=== PATIENT | female | born 1945 | race Caucasian/White ===

== ENCOUNTER 2017-08-15 01:55 | Emergency (ER) | payer MEDICARE, BC ==
--- NOTE | 2017-08-15 02:11 | EDM.PDOC ---
ED HPI GENERAL MEDICAL PROBLEM - General Chief Complaint: Chest Pain Stated Complaint: PAIN IN LEFT SHOULDER AREA INTO CHEST Time Seen by Provider: 08/15/17 02:11 Source of Information: Reports: Patient History Limitations: Reports: No Limitations - History of Present Illness INITIAL COMMENTS - FREE TEXT/NARRATIVE: pt has been having chest pain on and off for about 2 weeks. She woke up tonight and she had chest pain that lasted for 15 minutes that was rated at a 7 or 8. She is more comfortable at this time. She had a mamogram earlier in the week and the left breast that she had surgery on gets very tender so she thought some of the pain could be that. Onset: Gradual, Other (pt had the most severe pain today. ) Duration: Hour(s): Location: Reports: Chest Associated Symptoms: Reports: Chest Pain, Shortness of Breath, Other (pain radiates to her back. ) Left Chest Pain Score (Numeric/FACES): 3 - Related Data Allergies Allergy/AdvReac Type Severity Reaction Status Date / Time rofecoxib [From Vioxx] Allergy Blurred Verified 02/12/15 08:24 Vision Sulfa (Sulfonamide Allergy Rash Verified 02/12/15 08:24 Antibiotics) aspirin AdvReac Nose Bleeds Verified 02/12/15 08:26 Home Meds: Home Meds Cholecalciferol (Vitamin D3) [Vitamin D3] 4,000 units PO DAILY 11/15/14 [History ] MV,Ca,Min/Iron Fum/FA/Vit K [Essential Woman Tablet] 1 each PO DAILY 11/15/14 [ History] Metoprolol Succinate [Toprol XL] 50 mg PO DAILY 11/15/14 [History] Vitamin B Complex [Vitamin B-100 Complex] 1 tab PO DAILY 11/15/14 [History] Acetaminophen [Tylenol Extra Strength] 500 - 1,000 mg PO Q4H PRN 12/06/14 [ History] Dexamethasone 2 mg PO BID PRN 12/06/14 [History] Loratadine [Claritin] 10 mg PO DAILY PRN 12/06/14 [History] Letrozole [Letrozole] 2.5 mg PO DAILY 08/15/17 [History] glipiZIDE [Glipizide Xl] 5 mg PO DAILY 08/15/17 [History] metFORMIN [Glucophage] 500 mg PO BID 08/15/17 [History] ED ROS GENERAL - Review of Systems Review Of Systems: See Below Constitutional: Reports: No Symptoms HEENT: Reports: No Symptoms Respiratory: Reports: No Symptoms Cardiovascular: Reports: Chest Pain, Other (Pt woke up tonight with chest pain at a 8 which lasted for several minutes. ) Endocrine: Reports: No Symptoms GI/Abdominal: Reports: No Symptoms : Reports: No Symptoms Musculoskeletal: Reports: No Symptoms Neurological: Reports: No Symptoms ED EXAM, GENERAL - Physical Exam Exam: See Below Free Text/Narrative:: pt is not havoing severe chest pain at thie time but earlier she would have rated it at an 8. She did not get diaphoretic and she did not vomit. Exam Limited By: No Limitations General Appearance: Alert, Mild Distress Ears: Normal TMs Nose: Normal Inspection Throat/Mouth: Normal Inspection Head: Atraumatic Neck: Normal Inspection Respiratory/Chest: No Respiratory Distress Cardiovascular: Regular Rate, Rhythm, Other (pt is not having acute chest pain at this time. ) GI/Abdominal: Soft, Non-Tender (Female) Exam: Deferred Rectal (Female) Exam: Deferred Back Exam: Normal Inspection Extremities: Normal Inspection Neurological: Alert, Oriented, Normal Cognition Psychiatric: Normal Affect Course - Vital Signs Last Recorded V/S: Last Vital Signs Temp 36.7 C 08/15/17 02:15 Pulse 89 08/15/17 02:52 Resp 18 08/15/17 02:52 BP 163/84 H 08/15/17 02:52 Pulse Ox 96 08/15/17 02:52 - Orders/Labs/Meds Orders: Active Orders 24 hr Category Date Time Status EKG Documentation Completion [RC] ASDIRECTED Care 08/15/17 02:06 Active Chest 1V Frontal [CR] Stat Exams 08/15/17 02:14 Taken UA W/MICROSCOPIC [URIN] Urgent Lab 08/15/17 02:10 Uncollected Nitroglycerin/D5W [Nitroglycerin 25 MG/D5W 250 ML] Med 08/15/17 02:30 Active 25 mg in 250 ml IV TITRATE Sodium Chloride 0.9% [Normal Saline] 1,000 ml Med 08/15/17 02:30 Active IV ASDIRECTED Sodium Chloride 0.9% [Saline Flush] Med 08/15/17 02:12 Active 10 ml FLUSH ASDIRECTED PRN Saline Lock Insert [OM.PC] Routine Oth 08/15/17 02:12 Ordered EKG 12 Lead [EK] Routine Ther 08/15/17 02:06 Ordered Medication Orders Sodium Chloride (Normal Saline) 1,000 mls @ 150 mls/hr IV ASDIRECTED ANIKA Last Admin: 08/15/17 02:36 Dose: 150 mls/hr Nitroglycerin/Dextrose (Nitroglycerin 25 Mg/D5w 250 Ml) 25 mg in 250 mls @ 6 mls/hr IV TITRATE ANIKA; 10 MCG/MIN PRN Reason: Protocol Last Admin: 08/15/17 02:40 Dose: 10 mcg/min, 6 mls/hr Sodium Chloride (Saline Flush) 10 ml FLUSH ASDIRECTED PRN PRN Reason: Keep Vein Open Last Admin: 08/15/17 02:41 Dose: 10 ml Labs: Laboratory Tests 08/15/17 08/15/17 08/15/17 Range/Units 02:19 02:19 02:19 WBC 5.6 (4.5-11.0) K/uL RBC 4.58 (3.30-5.50) M/uL Hgb 13.9 D (12.0-15.0) g/dL Hct 40.9 (36.0-48.0) % MCV 89 (80-98) fL MCH 30 (27-31) pg MCHC 34 (32-36) % Plt Count 210 (150-400) K/uL Neut % (Auto) 44 (36-66) % Lymph % (Auto) 41 (24-44) % [place] % (Auto) 11 H (2-6) % Eos % (Auto) 4 (2-4) % Baso % (Auto) 1 (0-1) % PT (9.5-12.0) sec INR (0.80-1.20) APTT (27.0-36.0) sec Sodium 140 (140-148) mmol/L Potassium 4.6 (3.6-5.2) mmol/L Chloride 102 (100-108) mmol/L Carbon Dioxide 27 (21-32) mmol/L Anion Gap 11.0 (5.0-14.0) mmol/L BUN 17 (7-18) mg/dL Creatinine 1.0 (0.6-1.0) mg/dL Est Cr Clr Drug Dosing 40.81 mL/min Estimated GFR (MDRD) 55 L (>60) Glucose 147 H (74-106) mg/dL Calcium 9.5 (8.5-10.1) mg/dL Total Bilirubin 0.6 (0.2-1.0) mg/dL AST 32 (15-37) U/L ALT 32 (12-78) U/L Alkaline Phosphatase 71 (46-116) U/L Troponin I 0.020 (0.000-0.056) ng/mL Total Protein 6.8 (6.4-8.2) g/dL Albumin 3.7 (3.4-5.0) g/dL Globulin 3.1 (2.3-3.5) g/dL Albumin/Globulin Ratio 1.2 (1.2-2.2) Lipase 143 (73-393) U/L 08/15/17 08/15/17 Range/Units 02:33 02:34 WBC (4.5-11.0) K/uL RBC (3.30-5.50) M/uL Hgb (12.0-15.0) g/dL Hct (36.0-48.0) % MCV (80-98) fL MCH (27-31) pg MCHC (32-36) % Plt Count (150-400) K/uL Neut % (Auto) (36-66) % Lymph % (Auto) (24-44) % [place] % (Auto) (2-6) % Eos % (Auto) (2-4) % Baso % (Auto) (0-1) % PT 9.5 (9.5-12.0) sec INR 0.89 (0.80-1.20) APTT 24.5 L (27.0-36.0) sec Sodium (140-148) mmol/L Potassium (3.6-5.2) mmol/L Chloride (100-108) mmol/L Carbon Dioxide (21-32) mmol/L Anion Gap (5.0-14.0) mmol/L BUN (7-18) mg/dL Creatinine (0.6-1.0) mg/dL Est Cr Clr Drug Dosing mL/min Estimated GFR (MDRD) (>60) Glucose (74-106) mg/dL Calcium (8.5-10.1) mg/dL Total Bilirubin (0.2-1.0) mg/dL AST (15-37) U/L ALT (12-78) U/L Alkaline Phosphatase (46-116) U/L Troponin I (0.000-0.056) ng/mL Total Protein (6.4-8.2) g/dL Albumin (3.4-5.0) g/dL Globulin (2.3-3.5) g/dL Albumin/Globulin Ratio (1.2-2.2) Lipase (73-393) U/L Meds: Medications Generic Name Dose Route Start Last Admin Trade Name Freq PRN Reason Stop Dose Admin Sodium Chloride 1,000 mls @ 150 mls/hr 08/15/17 02:30 08/15/17 02:36 Normal Saline IV 150 mls/hr ASDIRECTED ANIKA Administration Nitroglycerin/Dextrose 25 mg in 250 mls @ 6 mls/hr 08/15/17 02:30 08/15/17 02 :40 Nitroglycerin 25 Mg/D5w 250 Ml IV 10 mcg/min TITRATE ANIKA 6 mls/hr Protocol Administration 10 MCG/MIN Sodium Chloride 10 ml 08/15/17 02:12 08/15/17 02:41 Saline Flush FLUSH 10 ml ASDIRECTED PRN Administration Keep Vein Open Discontinued Medications Generic Name Dose Route Start Last Admin Trade Name Freq PRN Reason Stop Dose Admin Aspirin 324 mg 08/15/17 02:13 08/15/17 02:36 Aspirin PO 08/15/17 02:14 324 mg ONETIME ONE Administration Heparin Sodium (Porcine) 4,000 units 08/15/17 02:55 Heparin Sodium IVPUSH 08/15/17 02:56 ONETIME ONE - Re-Assessments/Exams Free Text/Narrative Re-Assessment/Exam: 08/15/17 03:02 Pt had definite ekg changes looking inferior lateral. She did not have a elevated trop. 08/15/17 03:02 chest xray was clear. Departure - Departure Time of Disposition: 03:03 Disposition: DC/Tfer to [facility] 02 Reason for Transfer *Q: Primary PCI Indicated Condition: Fair Clinical Impression: Acute [place] Referrals: Yaya Lees PA [Primary Care Provider] - Forms: ED Department Discharge Care Plan Goals: transfer to Dr Gu[facility]. - My Orders Last 24 Hours: My Active Orders 08/15/17 02:06 EKG Documentation Completion [RC] ASDIRECTED EKG 12 Lead [EK] Routine 08/15/17 02:10 UA W/MICROSCOPIC [URIN] Urgent 08/15/17 02:12 Sodium Chloride 0.9% [Saline Flush] 10 ml FLUSH ASDIRECTED PRN Saline Lock Insert [OM.PC] Routine 08/15/17 02:14 Chest 1V Frontal [CR] Stat 08/15/17 02:30 Nitroglycerin/D5W [Nitroglycerin 25 MG/D5W 250 ML] 25 mg in 250 ml IV TITRATE Sodium Chloride 0.9% [Normal Saline] 1,000 ml IV ASDIRECTED - Assessment/Plan Last 24 Hours: My Active Orders 08/15/17 02:06 EKG Documentation Completion [RC] ASDIRECTED EKG 12 Lead [EK] Routine 08/15/17 02:10 UA W/MICROSCOPIC [URIN] Urgent 08/15/17 02:12 Sodium Chloride 0.9% [Saline Flush] 10 ml FLUSH ASDIRECTED PRN Saline Lock Insert [OM.PC] Routine 08/15/17 02:14 Chest 1V Frontal [CR] Stat 08/15/17 02:30 Nitroglycerin/D5W [Nitroglycerin 25 MG/D5W 250 ML] 25 mg in 250 ml IV TITRATE Sodium Chloride 0.9% [Normal Saline] 1,000 ml IV ASDIRECTED
[2017-08-15] MEDS ORDERED: Sodium Chloride 0.9% 10 ML Syringe FLUSH PRN (02:12)
[2017-08-15] MEDS ORDERED: Aspirin 81 MG Tab.Chew PO ONE (02:13)
[2017-08-15] MEDS ORDERED: Nitroglycerin/D5W 25 MG/250 ML BOTTLE IV SCH (02:30)
[2017-08-15] MEDS ORDERED: Sodium Chloride 0.9% 1,000 ML IV SCH (02:30)
[2017-08-15] MEDS ORDERED: Heparin Sodium 5,000 Units/ML Vial IVPUSH ONE (02:55)
[2017-08-15 03:30] VITALS: BP 150/85
--- NOTE | 2017-08-17 11:58 | CR ---
Mild cardiomegaly. Pulmonary vasculature within normal limits. No focal consolidation.
== END 2017-08-15 03:50 ==
LOC: JP.ED 01:55
DX: I21.9 Acute myocardial infarction, unspecified (principal); Z79.899 Other long term (current) drug therapy; Z88.2 Allergy status to sulfonamides; Z88.6 Allergy status to analgesic agent; Z88.8 Allergy status to other drugs, medicaments and biological substances
CPT/HCPCS: 36415; 71045; 80053; 81001; 83690; 84484; 85025; 85610; 85730; 93005; 96361; 96374; 96375; 99285; A9270; J1644; J7040; J7050; 93010; J7030

== ENCOUNTER 2017-08-18 03:59 | Observation (INO) | payer MEDICARE, BC ==
[2017-08-18] MEDS ORDERED: Aspirin 81 MG Tab.Chew PO ONE (04:16)
[2017-08-18] MEDS ORDERED: Sodium Chloride 0.9% 10 ML Syringe FLUSH PRN ×3 (04:16→11:00)
--- NOTE | 2017-08-18 04:21 | EDM.PDOC ---
<Jessica Encinas - Last Filed: 08/18/17 09:18> ED HPI GENERAL MEDICAL PROBLEM - General Chief Complaint: Back Pain or Injury Stated Complaint: BACK PAIN Time Seen by Provider: 08/18/17 04:14 - Related Data Allergies Allergy/AdvReac Type Severity Reaction Status Date / Time rofecoxib [From Vioxx] Allergy Blurred Verified 02/12/15 08:24 Vision Sulfa (Sulfonamide Allergy Rash Verified 02/12/15 08:24 Antibiotics) aspirin AdvReac Nose Bleeds Verified 02/12/15 08:26 Home Meds: Home Meds Cholecalciferol (Vitamin D3) [Vitamin D3] 4,000 units PO DAILY 11/15/14 [History ] MV,Ca,Min/Iron Fum/FA/Vit K [Essential Woman Tablet] 1 each PO DAILY 11/15/14 [ History] Vitamin B Complex [Vitamin B-100 Complex] 1 tab PO DAILY 11/15/14 [History] Acetaminophen [Tylenol Extra Strength] 500 - 1,000 mg PO Q4H PRN 12/06/14 [ History] Dexamethasone 2 mg PO BID PRN 12/06/14 [History] Loratadine [Claritin] 10 mg PO DAILY PRN 12/06/14 [History] Letrozole [Letrozole] 2.5 mg PO DAILY 08/15/17 [History] glipiZIDE [Glipizide Xl] 5 mg PO DAILY 08/15/17 [History] metFORMIN [Glucophage] 500 mg PO BID 08/15/17 [History] Clopidogrel [Plavix] 75 mg PO DAILY 08/18/17 [History] Lisinopril 20 mg PO DAILY 08/18/17 [History] Metoprolol Tartrate 50 mg PO DAILY 08/18/17 [History] Nitroglycerin [Nitroglycerin] 0.4 mg PO ASDIRECTED PRN 08/18/17 [History] atorvaSTATin [Lipitor] 80 mg PO DAILY 08/18/17 [History] Course - Vital Signs Last Recorded V/S: Last Vital Signs Temp 100.7 F H 08/18/17 18:26 Pulse 77 08/18/17 18:26 Resp 12 08/18/17 18:26 BP 155/54 H 08/18/17 18:26 Pulse Ox 95 08/18/17 18:26 - Orders/Labs/Meds Orders: Active Orders 24 hr Category Date Time Status Cardiac Monitoring [RC] .As Directed Care 08/18/17 04:16 Inactive Ang Chest [CT] Stat Exams 08/18/17 07:27 Taken EKG 12 Lead [EK] Stat Ther 08/18/17 04:17 Stop Req Medication Orders Acetaminophen (Tylenol) 650 mg PO Q4H PRN PRN Reason: Pain (Mild 1-3)/fever Aspirin (Aspirin) 81 mg PO DAILY [facility] Clopidogrel Bisulfate (Plavix) 75 mg PO DAILY [facility] Last Admin: 08/18/17 14:22 Dose: 75 mg Dextrose (Glutose 15) 15 gm PO ONETIME PRN PRN Reason: Hypoglycemia Dextrose/Water (Dextrose 50% In Water) 50 ml IV ONETIME PRN PRN Reason: Hypoglycemia Enoxaparin Sodium (Lovenox) 40 mg SUBCUT DAILY [facility] Last Admin: 08/18/17 14:26 Dose: 40 mg Glipizide (Glucotrol Xl) 5 mg PO DAILY [facility] Last Admin: 08/18/17 14:24 Dose: 5 mg Insulin Aspart (Novolog) 0 unit SUBCUT QIDACANDBED [facility] PRN Reason: Protocol Last Admin: 08/18/17 16:00 Dose: Not Given Admin: 08/18/17 14:15 Dose: Not Given Letrozole (Femara) 2.5 mg PO DAILY [facility] Last Admin: 08/18/17 14:24 Dose: 2.5 mg Lisinopril (Prinivil) 20 mg PO DAILY [facility] Last Admin: 08/18/17 14:25 Dose: 20 mg Loratadine (Claritin) 10 mg PO DAILY PRN PRN Reason: Other Magnesium Hydroxide (Milk Of Magnesia) 30 ml PO Q12H PRN PRN Reason: Constipation Metformin HCl (Glucophage) 500 mg PO BID [facility] Last Admin: 08/18/17 14:27 Dose: Not Given Metoprolol Tartrate (Lopressor) 50 mg PO DAILY [facility] Last Admin: 08/18/17 14:22 Dose: 50 mg Morphine Sulfate (Morphine) 2 mg IVPUSH Q30M PRN PRN Reason: Pain (severe 7-10) Last Admin: 08/18/17 18:34 Dose: 2 mg Nitroglycerin (Nitrostat) 0.4 mg SL ASDIRECTED PRN PRN Reason: Chest Pain Ondansetron HCl (Zofran) 4 mg IV Q4H PRN PRN Reason: Nausea/Vomiting Atorvastatin 80mg ( (Ptom)) 0 each PO QPM ANIKA Last Admin: 08/18/17 16:05 Dose: 1 each Polyethylene Glycol (Miralax) 17 gm PO DAILY PRN PRN Reason: Constipation Senna/Docusate Sodium (Senna Plus) 1 tab PO BID PRN PRN Reason: Constipation Sodium Chloride (Saline Flush) 10 ml FLUSH ASDIRECTED PRN PRN Reason: Keep Vein Open Labs: Laboratory Tests 08/18/17 08/18/17 08/18/17 Range/Units 04:30 04:35 04:40 WBC 4.4 L (4.5-11.0) K/uL RBC 4.24 (3.30-5.50) M/uL Hgb 12.6 (12.0-15.0) g/dL Hct 38.1 (36.0-48.0) % MCV 90 (80-98) fL MCH 30 (27-31) pg MCHC 33 (32-36) % Plt Count 174 (150-400) K/uL Neut % (Auto) 54 (36-66) % Lymph % (Auto) 28 (24-44) % [place] % (Auto) 14 H (2-6) % Eos % (Auto) 3 (2-4) % Baso % (Auto) 0 (0-1) % ESR 28 H (0-25) mm/hr Sodium 138 L (140-148) mmol/L Potassium 3.7 (3.6-5.2) mmol/L Chloride 104 (100-108) mmol/L Carbon Dioxide 22 (21-32) mmol/L Anion Gap 15.7 H (5.0-14.0) mmol/L BUN 17 (7-18) mg/dL Creatinine 0.9 (0.6-1.0) mg/dL Est Cr Clr Drug Dosing 45.34 mL/min Estimated GFR (MDRD) > 60 (>60) Glucose 175 H (74-106) mg/dL Calcium 8.7 (8.5-10.1) mg/dL Total Bilirubin 0.9 (0.2-1.0) mg/dL AST 24 (15-37) U/L ALT 38 (12-78) U/L Alkaline Phosphatase 64 (46-116) U/L CK-MB (CK-2) 1.2 (0-3.6) mg/mL Troponin I 0.222 H* (0.000-0.056) ng/mL Total Protein 6.2 L (6.4-8.2) g/dL Albumin 3.3 L (3.4-5.0) g/dL Globulin 2.9 (2.3-3.5) g/dL Albumin/Globulin Ratio 1.1 L (1.2-2.2) 08/18/17 Range/Units 06:35 WBC (4.5-11.0) K/uL RBC (3.30-5.50) M/uL Hgb (12.0-15.0) g/dL Hct (36.0-48.0) % MCV (80-98) fL MCH (27-31) pg MCHC (32-36) % Plt Count (150-400) K/uL Neut % (Auto) (36-66) % Lymph % (Auto) (24-44) % [place] % (Auto) (2-6) % Eos % (Auto) (2-4) % Baso % (Auto) (0-1) % ESR (0-25) mm/hr Sodium (140-148) mmol/L Potassium (3.6-5.2) mmol/L Chloride (100-108) mmol/L Carbon Dioxide (21-32) mmol/L Anion Gap (5.0-14.0) mmol/L BUN (7-18) mg/dL Creatinine (0.6-1.0) mg/dL Est Cr Clr Drug Dosing mL/min Estimated GFR (MDRD) (>60) Glucose (74-106) mg/dL Calcium (8.5-10.1) mg/dL Total Bilirubin (0.2-1.0) mg/dL AST (15-37) U/L ALT (12-78) U/L Alkaline Phosphatase (46-116) U/L CK-MB (CK-2) (0-3.6) mg/mL Troponin I 0.191 H* (0.000-0.056) ng/mL Total Protein (6.4-8.2) g/dL Albumin (3.4-5.0) g/dL Globulin (2.3-3.5) g/dL Albumin/Globulin Ratio (1.2-2.2) Meds: Medications Generic Name Dose Route Start Last Admin Trade Name Freq PRN Reason Stop Dose Admin Acetaminophen 650 mg 08/18/17 11:00 Tylenol PO Q4H PRN Pain (Mild 1-3)/fever Aspirin 81 mg 08/19/17 09:00 Aspirin PO DAILY [facility] Clopidogrel Bisulfate 75 mg 08/18/17 13:30 08/18/17 14:22 Plavix PO 75 mg DAILY ANIKA Administration Dextrose 15 gm 08/18/17 11:00 Glutose 15 PO ONETIME PRN Hypoglycemia Dextrose/Water 50 ml 08/18/17 11:00 Dextrose 50% In Water IV ONETIME PRN Hypoglycemia Enoxaparin Sodium 40 mg 08/18/17 11:00 08/18/17 14:26 Lovenox SUBCUT 40 mg DAILY [facility] Administration Glipizide 5 mg 08/18/17 13:30 08/18/17 14:24 Glucotrol Xl PO 5 mg DAILY [facility] Administration Insulin Aspart 0 unit 08/18/17 11:00 08/18/17 16:00 Novolog SUBCUT Not Given QIDACANDBED [facility] Protocol Letrozole 2.5 mg 08/18/17 13:30 08/18/17 14:24 Femara PO 2.5 mg DAILY [facility] Administration Lisinopril 20 mg 08/18/17 11:00 08/18/17 14:25 Prinivil PO 20 mg DAILY [facility] Administration Loratadine 10 mg 08/18/17 11:00 Claritin PO DAILY PRN Other Magnesium Hydroxide 30 ml 08/18/17 11:00 Milk Of Magnesia PO Q12H PRN Constipation Metformin HCl 500 mg 08/18/17 11:00 08/18/17 14:27 Glucophage PO Not Given BID [facility] Metoprolol Tartrate 50 mg 08/18/17 13:30 08/18/17 14:22 Lopressor PO 50 mg DAILY [facility] Administration Morphine Sulfate 2 mg 08/18/17 11:00 08/18/17 18:34 Morphine IVPUSH 2 mg Q30M PRN Administration Pain (severe 7-10) Nitroglycerin 0.4 mg 08/18/17 11:00 Nitrostat SL ASDIRECTED PRN Chest Pain Ondansetron HCl 4 mg 08/18/17 11:00 Zofran IV Q4H PRN Nausea/Vomiting Atorvastatin 80mg ( 0 each 08/18/17 17:00 08/18/17 16:05 Ptom) PO 1 each QPM ANIKA Administration Polyethylene Glycol 17 gm 08/18/17 11:00 Miralax PO DAILY PRN Constipation Senna/Docusate Sodium 1 tab 08/18/17 11:00 Senna Plus PO BID PRN Constipation Sodium Chloride 10 ml 08/18/17 11:00 Saline Flush FLUSH ASDIRECTED PRN Keep Vein Open Discontinued Medications Generic Name Dose Route Start Last Admin Trade Name Freq PRN Reason Stop Dose Admin Aspirin 324 mg 08/18/17 04:16 08/18/17 04:32 Aspirin PO 08/18/17 04:17 324 mg ONETIME ONE Administration Aspirin Confirm 08/18/17 04:38 08/18/17 05:10 Aspirin Administered 08/18/17 04:39 Not Given Dose 81 mg .ROUTE .STK-MED ONE Sodium Chloride 1,000 mls @ 500 mls/hr 08/18/17 05:30 08/18/17 05:28 Normal Saline IV 500 mls/hr ASDIRECTED ANIKA Administration Sodium Chloride 100 mls @ 3.5 mls/sec 08/18/17 07:45 08/18/17 08:11 Normal Saline IV 08/18/17 09:00 4 mls/sec ASDIRECTED ANIKA Administration Iopamidol 100 ml 08/18/17 07:45 08/18/17 08:11 Isovue-370 (76%) IV 08/18/17 09:00 100 ml . DIRECTED ANIKA Administration Lorazepam 1 mg 08/18/17 07:33 08/18/17 07:40 Ativan IVPUSH 08/18/17 07:34 1 mg ONETIME ONE Administration Morphine Sulfate 2 mg 08/18/17 04:16 08/18/17 05:08 Morphine IVPUSH 08/19/17 04:17 2 mg Q10M PRN Administration Chest Pain Sodium Chloride 10 ml 08/18/17 04:16 08/18/17 04:34 Saline Flush FLUSH 10 ml ASDIRECTED PRN Administration Keep Vein Open Sodium Chloride 10 ml 08/18/17 07:45 08/18/17 08:11 Saline Flush FLUSH 08/18/17 09:00 10 ml ONETIME PRN Administration per radiology protocol - Re-Assessments/Exams Free Text/Narrative Re-Assessment/Exam: 08/18/17 09:18 pt had a cat scan of the chest which was neg. This situation was discussed with the post tensioning ironworker helper--Dr Fletcher. and she felt like the pt should be observed. Departure - Departure Time of Disposition: 09:20 Disposition: Admitted As Inpatient 67 Condition: Fair Clinical Impression: Left shoulder pain, Hx of heart artery stent - My Orders Last 24 Hours: My Active Orders 08/18/17 04:16 Cardiac Monitoring [RC] .As Directed 08/18/17 04:17 EKG 12 Lead [EK] Stat 08/18/17 07:27 Ang Chest [CT] Stat - Assessment/Plan Last 24 Hours: My Active Orders 08/18/17 04:16 Cardiac Monitoring [RC] .As Directed 08/18/17 04:17 EKG 12 Lead [EK] Stat 08/18/17 07:27 Ang Chest [CT] Stat <OfficerNathan - Last Filed: 08/18/17 18:49> ED HPI GENERAL MEDICAL PROBLEM - General Source of Information: Reports: Patient, Family, Old Records, RN Notes Reviewed History Limitations: Reports: No Limitations - History of Present Illness INITIAL COMMENTS - FREE TEXT/NARRATIVE: 72-year-old female presents emergency department today complaint of back pain, she recently had a myocardial infarction 3 days prior was discharged from the hospital after receiving one stent for her coronary artery disease yesterday, she states the back pain feels similar to when she had her myocardial infarction no shortness of breath no nausea vomiting no diaphoresis, the pain awoke her from sleep approximately 4 hours ago Past Medical History Cardiovascular History: Reports: CAD, High Cholesterol, Hypertension, PA, Stents [employer] History: Reports: Endocrine/Metabolic History: Reports: Diabetes, Type II Oncologic (Cancer) History: Reports: Breast Other Oncologic History: left breast lumpectomy with radiation and chemo follow up - Past Surgical History Musculoskeletal Surgical History: Reports: Knee Replacement Other Musculoskeletal Surgeries/Procedures:: bilateral knee replacements Oncologic Surgical History: Reports: Lumpectomy Social & Family History - Tobacco Use Smoking Status *Q: Never Smoker Second Hand Smoke Exposure: No - Caffeine Use Caffeine Use: Reports: Coffee Caffeine Use Comment: 1 cup per day (decaffeinated) - Recreational Drug Use Recreational Drug Use: No ED ROS GENERAL - Review of Systems Review Of Systems: See Below Constitutional: Reports: No Symptoms HEENT: Reports: No Symptoms Respiratory: Reports: No Symptoms Cardiovascular: Reports: Chest Pain GI/Abdominal: Reports: No Symptoms : Reports: No Symptoms Musculoskeletal: Reports: No Symptoms Skin: Reports: No Symptoms ED EXAM, GENERAL - Physical Exam Exam: See Below Exam Limited By: No Limitations General Appearance: Alert, WD/WN, No Apparent Distress Head: Atraumatic, Normocephalic Neck: Normal Inspection, Supple, Non-Tender, Full Range of Motion Respiratory/Chest: No Respiratory Distress, Lungs Clear, Normal Breath Sounds, No Accessory Muscle Use Cardiovascular: Regular Rate, Rhythm, No Murmur GI/Abdominal: Soft, Non-Tender Back Exam: Normal Inspection, Full Range of Motion Extremities: Non-Tender, No Pedal Edema Course - Orders/Labs/Meds Labs: Laboratory Tests 08/18/17 08/18/17 08/18/17 Range/Units 04:30 04:35 04:40 WBC 4.4 L (4.5-11.0) K/uL RBC 4.24 (3.30-5.50) M/uL Hgb 12.6 (12.0-15.0) g/dL Hct 38.1 (36.0-48.0) % MCV 90 (80-98) fL MCH 30 (27-31) pg MCHC 33 (32-36) % Plt Count 174 (150-400) K/uL Neut % (Auto) 54 (36-66) % Lymph % (Auto) 28 (24-44) % [place] % (Auto) 14 H (2-6) % Eos % (Auto) 3 (2-4) % Baso % (Auto) 0 (0-1) % ESR 28 H (0-25) mm/hr Sodium 138 L (140-148) mmol/L Potassium 3.7 (3.6-5.2) mmol/L Chloride 104 (100-108) mmol/L Carbon Dioxide 22 (21-32) mmol/L Anion Gap 15.7 H (5.0-14.0) mmol/L BUN 17 (7-18) mg/dL Creatinine 0.9 (0.6-1.0) mg/dL Est Cr Clr Drug Dosing 45.34 mL/min Estimated GFR (MDRD) > 60 (>60) Glucose 175 H (74-106) mg/dL Calcium 8.7 (8.5-10.1) mg/dL Total Bilirubin 0.9 (0.2-1.0) mg/dL AST 24 (15-37) U/L ALT 38 (12-78) U/L Alkaline Phosphatase 64 (46-116) U/L CK-MB (CK-2) 1.2 (0-3.6) mg/mL Troponin I 0.222 H* (0.000-0.056) ng/mL Total Protein 6.2 L (6.4-8.2) g/dL Albumin 3.3 L (3.4-5.0) g/dL Globulin 2.9 (2.3-3.5) g/dL Albumin/Globulin Ratio 1.1 L (1.2-2.2) 08/18/17 Range/Units 06:35 WBC (4.5-11.0) K/uL RBC (3.30-5.50) M/uL Hgb (12.0-15.0) g/dL Hct (36.0-48.0) % MCV (80-98) fL MCH (27-31) pg MCHC (32-36) % Plt Count (150-400) K/uL Neut % (Auto) (36-66) % Lymph % (Auto) (24-44) % Donley % (Auto) (2-6) % Eos % (Auto) (2-4) % Baso % (Auto) (0-1) % ESR (0-25) mm/hr Sodium (140-148) mmol/L Potassium (3.6-5.2) mmol/L Chloride (100-108) mmol/L Carbon Dioxide (21-32) mmol/L Anion Gap (5.0-14.0) mmol/L BUN (7-18) mg/dL Creatinine (0.6-1.0) mg/dL Est Cr Clr Drug Dosing mL/min Estimated GFR (MDRD) (>60) Glucose (74-106) mg/dL Calcium (8.5-10.1) mg/dL Total Bilirubin (0.2-1.0) mg/dL AST (15-37) U/L ALT (12-78) U/L Alkaline Phosphatase (46-116) U/L CK-MB (CK-2) (0-3.6) mg/mL Troponin I 0.191 H* (0.000-0.056) ng/mL Total Protein (6.4-8.2) g/dL Albumin (3.4-5.0) g/dL Globulin (2.3-3.5) g/dL Albumin/Globulin Ratio (1.2-2.2) - Re-Assessments/Exams Free Text/Narrative Re-Assessment/Exam: 08/18/17 06:08 She had taken 3 nitroglycerin at home I was given total 4 mg morphine here she is pain-free at this time her troponin is elevated at 0.222 however her troponin on Thursday morning 2 days prior was elevated at 1.11 this is after her myocardial infarction STEMI and catheterization with stenting 1 08/18/17 07:33 Troponin is trending down last measurement 0.191 she remains pain-free blood pressure has normalized however did order a CT scan and she'll to rule out any possibility of pulmonary embolism or dissection care will be turned over to Dr. Encinas, called and discussed the case with cardiology at [facility] recommended observation and felt that CT scan and you will was worthwhile 08/18/17 18:41
[2017-08-18] MEDS: Morphine 2 MG/ML Syringe IVPUSH PRN ×2 (04:33→05:08)
[2017-08-18] MEDS ORDERED: Aspirin 81 MG Tab.Chew ONE (04:38)
[2017-08-18] MEDS ORDERED: Sodium Chloride 0.9% 1,000 ML IV SCH (05:30)
[2017-08-18] MEDS ORDERED: LORazepam 2 MG/ML MDV IVPUSH ONE (07:33)
[2017-08-18] MEDS ORDERED: Iopamidol 755 Mg/ML 100 ML Bottle IV SCH (07:45)
[2017-08-18] MEDS ORDERED: Sodium Chloride 0.9% 100 ML IV SCH (07:45)
--- NOTE | 2017-08-18 09:19 | CR ---
Mild cardiomegaly. No focal consolidation. Pulmonary vasculature which are within normal limits.
--- NOTE | 2017-08-18 10:27 | PCM.HP ---
H&P History of Present Illness - General Date of Service: 08/18/17 Admit Problem/Dx: Source of Information: Patient, Family, Provider, RN Notes Reviewed History Limitations: Reports: No Limitations - History of Present Illness Initial Comments - Free Text/Narative: Ms. Gray is a 72-year-old woman who is admitted through the emergency department observation status for monitoring and further evaluation of chest pain. She presented to this facility 3 days ago with chest pain and was found to have acute myocardial infarction. She was transferred to [place] and did undergo an angiogram with angioplasty and stent placement. She was discharged home 2 days ago, initially felt well but early this morning developed recurrent symptoms of pain, although somewhat different from what she experienced with her MT. With the myocardial infarction she experienced chest pressure that radiated to her shoulder, this morning is experiencing pain between her shoulder blades. Pain did resolve with IV morphine and sublingual nitroglycerin. CT scan of the chest was obtained showing no evidence of pulmonary embolism or other significant abnormalities. Initial troponin level was elevated but it had been elevated with her myocardial infarction. Follow-up troponin obtained 2 hours after the first one did show a slight decrease consistent with resolution from previous MT. She has not had any recurrent symptoms of chest pain since she presented to the emergency department. 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 - Related Data Allergies/Adverse Reactions: Allergies Allergy/AdvReac Type Severity Reaction Status Date / Time rofecoxib [From Vioxx] Allergy Blurred Verified 02/12/15 08:24 Vision Sulfa (Sulfonamide Allergy Rash Verified 02/12/15 08:24 Antibiotics) aspirin AdvReac Nose Bleeds Verified 02/12/15 08:26 Home Medications: Home Meds Cholecalciferol (Vitamin D3) [Vitamin D3] 4,000 units PO DAILY 11/15/14 [History ] MV,Ca,Min/Iron Fum/FA/Vit K [Essential Woman Tablet] 1 each PO DAILY 11/15/14 [ History] Metoprolol Succinate [Toprol XL] 50 mg PO DAILY 11/15/14 [History] Vitamin B Complex [Vitamin B-100 Complex] 1 tab PO DAILY 11/15/14 [History] Acetaminophen [Tylenol Extra Strength] 500 - 1,000 mg PO Q4H PRN 12/06/14 [ History] Dexamethasone 2 mg PO BID PRN 12/06/14 [History] Loratadine [Claritin] 10 mg PO DAILY PRN 12/06/14 [History] Letrozole [Letrozole] 2.5 mg PO DAILY 08/15/17 [History] glipiZIDE [Glipizide Xl] 5 mg PO DAILY 08/15/17 [History] metFORMIN [Glucophage] 500 mg PO BID 08/15/17 [History] Clopidogrel [Plavix] 75 mg PO DAILY 08/18/17 [History] Lisinopril 20 mg PO DAILY 08/18/17 [History] Nitroglycerin [Nitroglycerin] 0.4 mg PO ASDIRECTED PRN 08/18/17 [History] atorvaSTATin [Lipitor] 80 mg PO DAILY 08/18/17 [History] Past Medical History Cardiovascular History: Reports: CAD, High Cholesterol, Hypertension, MT, Stents 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: Endocrine/Metabolic History: Reports: Diabetes, Type II Oncologic (Cancer) History: Reports: Breast Other Oncologic History: left breast lumpectomy with radiation and chemo follow up - Past Surgical History Musculoskeletal Surgical History: Reports: Knee Replacement Other Musculoskeletal Surgeries/Procedures:: bilateral knee replacements Oncologic Surgical History: Reports: Lumpectomy Social & Family History - Tobacco Use Smoking Status *Q: Never Smoker Second Hand Smoke Exposure: No - Caffeine Use Caffeine Use: Reports: Coffee Caffeine Use Comment: 1 cup per day (decaffeinated) - Recreational Drug Use Recreational Drug Use: No H&P Review of Systems - Review of Systems: Review Of Systems: See Below General: Reports: Weakness. Denies: Fever, Chills HEENT: Reports: No Symptoms Pulmonary: Reports: No Symptoms Cardiovascular: Reports: No Symptoms. Denies: Chest Pain Gastrointestinal: Reports: No Symptoms Genitourinary: Reports: No Symptoms Musculoskeletal: Reports: Back Pain. Denies: Neck Pain, Shoulder Pain Skin: Reports: No Symptoms Psychiatric: Reports: No Symptoms Neurological: Reports: No Symptoms Hematologic/Lymphatic: Reports: No Symptoms Immunologic: Reports: No Symptoms Exam - Exam Exam: See Below - Vital Signs Vital Signs: Last Vital Signs Temp 95.9 F 08/18/17 10:03 Pulse 64 08/18/17 10:03 Resp 13 08/18/17 10:03 BP 131/60 08/18/17 10:03 Pulse Ox 97 02/06/18 10:03 Weight: 230 lb - Exam Quality Assessment: DVT Prophylaxis General: Alert, Oriented, Cooperative HEENT: Conjunctiva Clear, Hearing Intact, Mucosa Moist & [place], Normal Nasal Septum, Posterior Pharynx Clear, Pupils Equal Neck: Supple, Trachea Midline, +2 Carotid Pulse wo Bruit Lungs: Clear to Auscultation, Normal Respiratory Effort Cardiovascular: Regular Rate, Regular Rhythm, Normal S1, Normal S2. No: Systolic Murmur, Diastolic Murmur GI/Abdominal Exam: Soft, Non-Tender, No Organomegaly, No Distention Back Exam: Normal Inspection, Full Range of Motion Extremities: Non-Tender, No Pedal Edema Skin: Warm, Dry, Intact Neurological: Cranial Nerves Intact, Strength Equal Bilateral, Normal Speech, Normal Tone, Sensation Intact. No: Focal Deficit Neuro Extensive - Mental Status: Alert, Oriented x3, Normal Mood/Affect, Normal Cognition, Memory Intact - Patient Data Lab Results Last 24 hrs: Laboratory Results - last 24 hr 08/18/17 08/18/17 08/18/17 Range/Units 04:30 04:35 04:40 WBC 4.4 L (4.5-11.0) K/uL RBC 4.24 (3.30-5.50) M/uL Hgb 12.6 (12.0-15.0) g/dL Hct 38.1 (36.0-48.0) % MCV 90 (80-98) fL MCH 30 (27-31) pg MCHC 33 (32-36) % Plt Count 174 (150-400) K/uL Neut % (Auto) 54 (36-66) % Lymph % (Auto) 28 (24-44) % Evans % (Auto) 14 H (2-6) % Eos % (Auto) 3 (2-4) % Baso % (Auto) 0 (0-1) % ESR 28 H (0-25) mm/hr Sodium 138 L (140-148) mmol/L Potassium 3.7 (3.6-5.2) mmol/L Chloride 104 (100-108) mmol/L Carbon Dioxide 22 (21-32) mmol/L Anion Gap 15.7 H (5.0-14.0) mmol/L BUN 17 (7-18) mg/dL Creatinine 0.9 (0.6-1.0) mg/dL Est Cr Clr Drug Dosing 45.34 mL/min Estimated GFR (MDRD) > 60 (>60) Glucose 175 H (74-106) mg/dL Calcium 8.7 (8.5-10.1) mg/dL Total Bilirubin 0.9 (0.2-1.0) mg/dL AST 24 (15-37) U/L ALT 38 (12-78) U/L Alkaline Phosphatase 64 (46-116) U/L CK-MB (CK-2) 1.2 (0-3.6) mg/mL Troponin I 0.222 H* (0.000-0.056) ng/mL Total Protein 6.2 L (6.4-8.2) g/dL Albumin 3.3 L (3.4-5.0) g/dL Globulin 2.9 (2.3-3.5) g/dL Albumin/Globulin Ratio 1.1 L (1.2-2.2) 08/18/17 Range/Units 06:35 WBC (4.5-11.0) K/uL RBC (3.30-5.50) M/uL Hgb (12.0-15.0) g/dL Hct (36.0-48.0) % MCV (80-98) fL MCH (27-31) pg MCHC (32-36) % Plt Count (150-400) K/uL Neut % (Auto) (36-66) % Lymph % (Auto) (24-44) % Evans % (Auto) (2-6) % Eos % (Auto) (2-4) % Baso % (Auto) (0-1) % ESR (0-25) mm/hr Sodium (140-148) mmol/L Potassium (3.6-5.2) mmol/L Chloride (100-108) mmol/L Carbon Dioxide (21-32) mmol/L Anion Gap (5.0-14.0) mmol/L BUN (7-18) mg/dL Creatinine (0.6-1.0) mg/dL Est Cr Clr Drug Dosing mL/min Estimated GFR (MDRD) (>60) Glucose (74-106) mg/dL Calcium (8.5-10.1) mg/dL Total Bilirubin (0.2-1.0) mg/dL AST (15-37) U/L ALT (12-78) U/L Alkaline Phosphatase (46-116) U/L CK-MB (CK-2) (0-3.6) mg/mL Troponin I 0.191 H* (0.000-0.056) ng/mL Total Protein (6.4-8.2) g/dL Albumin (3.4-5.0) g/dL Globulin (2.3-3.5) g/dL Albumin/Globulin Ratio (1.2-2.2) Result Diagrams: 08/18/17 04:35 08/18/17 04:30 *Q Meaningful Use (ADM) - VTE *Q VTE Criteria *Q: - VTE Risk Assess *Q Each Risk Factor Represents 1 Point: Obesity ( BMI > 25 kg/m2) Total Score 1 Point Risk Factors: 1 Each Risk Factor Represents 2 Points: Age 60 - 74 Years Total Score 2 Point Risk Factors: 2 Each Risk Factor Represents 3 Points: None Total Score 3 Point Risk Factors: 0 Each Risk Factor Represents 5 Points: None Total Score 5 Point Risk Factors: 0 Venous Thromboembolism Risk Factor Score *Q: 3 - Stroke *Q Stroke Criteria *Q: - AMI *Q AMI Criteria *Q: Problem List Initiated/Reviewed/Updated: Yes Orders Last 24hrs: Active Orders 24 hr Category Date Time Status Patient Status Manage Transfer [TRANSFER] Routine ADT 08/18/17 10:13 Ordered Cardiac Monitoring [RC] .As Directed Care 08/18/17 04:16 Active EKG Documentation Completion [RC] ASDIRECTED Care 08/18/17 04:18 Active Peripheral IV Care [RC] . DIRECTED Care 08/18/17 04:18 Active Ang Chest [CT] Stat Exams 08/18/17 07:27 Taken Morphine Med 08/18/17 04:16 Active 2 mg IVPUSH Q10M PRN Sodium Chloride 0.9% [Normal Saline] 1,000 ml Med 08/18/17 05:30 Active IV ASDIRECTED Sodium Chloride 0.9% [Saline Flush] Med 08/18/17 04:16 Active 10 ml FLUSH ASDIRECTED PRN Peripheral IV Insertion Adult [OM.PC] Stat Oth 08/18/17 04:16 Ordered Saline Lock Insert [OM.PC] Stat Oth 08/18/17 04:16 Ordered Resuscitation Status Routine Resus Stat 08/18/17 10:20 Ordered EKG 12 Lead [EK] Stat Ther 08/18/17 04:17 Ordered Medication Orders Sodium Chloride (Normal Saline) 1,000 mls @ 500 mls/hr IV ASDIRECTED ANIKA Last Admin: 08/18/17 05:28 Dose: 500 mls/hr Morphine Sulfate (Morphine) 2 mg IVPUSH Q10M PRN PRN Reason: Chest Pain Stop: 08/19/17 04:17 Last Admin: 08/18/17 05:08 Dose: 2 mg Admin: 08/18/17 04:33 Dose: 2 mg Sodium Chloride (Saline Flush) 10 ml FLUSH ASDIRECTED PRN PRN Reason: Keep Vein Open Last Admin: 08/18/17 04:34 Dose: 10 ml Assessment/Plan Comment:: ASSESSMENT AND PLAN UPPER BACK PAIN-occurring in the setting of recent myocardial infarction with symptoms of chest and shoulder pain. Initial troponin levels mildly elevated but there was a modest decrease from the first troponin level to the second. CT scan of the chest showed no other obvious abnormalities to explain her symptoms of pain. -Observation admission -Serial troponin levels -Cardiac monitoring RECENT ST SEGMENT ELEVATION MYOCARDIAL INFARCTION-status post angioplasty with stent placement -Continue outpatient medical regimen including antiplatelet therapy TYPE 2 DIABETES MELLITUS -Continue outpatient oral hypoglycemic meds -4 times a day glucometers -Low-dose sliding scale NovoLog MAINTENANCE ISSUES -DVT prophylaxis; Lovenox 40 mg subcutaneous daily -GI prophylaxis; not indicated -Mcallister catheter; not indicated -Nutrition; consistent carb diet -Nicotine dependence; not required CODE STATUS-FULL CODE ADMISSION STATUS-this patient will be admitted to observation status, expect no more than a one night hospital stay for evaluation and management of problems as outlined above. DISPOSITION-anticipate discharge to home after the hospital stay. PRIMARY CARE PROVIDER-Yaya Lees
[2017-08-18] MEDS ORDERED: Loratadine 10 MG Tab PO PRN (11:00)
[2017-08-18] MEDS ORDERED: Ondansetron 4 MG/2 ML SDV IV PRN (11:00)
[2017-08-18] MEDS ORDERED: Metoprolol Succinate 50 MG Tab.ER PO SCH (11:00)
[2017-08-18] MEDS ORDERED: Morphine 2 MG/ML Syringe IVPUSH PRN (11:00)
[2017-08-18] MEDS ORDERED: 50% Dextrose in Water 50 ML Syringe IV PRN (11:00)
[2017-08-18] MEDS ORDERED: Nitroglycerin 0.4 MG Tab.SL (PTOM) SL PRN (11:00)
[2017-08-18] MEDS ORDERED: Magnesium Hydroxide 400 MG/5 ML Susp 30 ML Cup PO PRN (11:00)
[2017-08-18] MEDS ORDERED: Glucose Gel 15 GM in 37.5 GM Tube PO PRN (11:00)
[2017-08-18] MEDS ORDERED: Polyethylene Glycol 3350 Powder 17 GM Packet PO PRN (11:00)
[2017-08-18] MEDS ORDERED: metFORMIN 500 MG Tab PO SCH (11:00)
[2017-08-18] MEDS: Insulin Aspart 100 Units/ML 3 ML Pen SUBCUT SCH ×3 (14:15→20:45)
[2017-08-18] MEDS: Metoprolol Tartrate 50 MG Tab (PTOM) PO SCH (14:22)
[2017-08-18] MEDS: Clopidogrel 75 MG Tab (PTOM) PO SCH (14:22)
[2017-08-18] MEDS: LETROZOLE 2.5 MG PO SCH (14:24)
[2017-08-18] MEDS: GLIPIZIDE 5 MG PO SCH (14:24)
[2017-08-18] MEDS: Lisinopril 20 MG Tab (PTOM) PO SCH (14:25)
[2017-08-18] MEDS: Enoxaparin 40 MG/0.4 ML Syringe SUBCUT SCH (14:26)
[2017-08-18] MEDS ORDERED: ATORVASTATIN 80MG (PTOM) PO SCH (17:00)
[2017-08-18] MEDS: Acetaminophen 325 MG Tab PO PRN (18:41)
[2017-08-19] MEDS: Acetaminophen 325 MG Tab PO PRN ×2 (01:06→07:31)
[2017-08-19] MEDS: Insulin Aspart 100 Units/ML 3 ML Pen SUBCUT SCH (07:33)
[2017-08-19] MEDS: Lisinopril 20 MG Tab (PTOM) PO SCH (08:21)
[2017-08-19] MEDS: LETROZOLE 2.5 MG PO SCH (08:22)
[2017-08-19] MEDS: GLIPIZIDE 5 MG PO SCH (08:22)
[2017-08-19] MEDS: Clopidogrel 75 MG Tab (PTOM) PO SCH (08:22)
[2017-08-19] MEDS: Metoprolol Tartrate 50 MG Tab (PTOM) PO SCH (08:23)
[2017-08-19] MEDS: Enoxaparin 40 MG/0.4 ML Syringe SUBCUT SCH (08:23)
[2017-08-19 08:24] VITALS: BP 135/53
[2017-08-19] MEDS ORDERED: Aspirin 81 MG Tab.Chew PO SCH (09:00)
[2017-08-19] MEDS ORDERED: Non-Formulary Medication 1 Each (Atorvastatin [Lipitor] 80 MG) PO SCH (09:00)
--- NOTE | 2017-08-19 09:10 | PCM.DCSUM1 ---
Discharge Summary - Hospital Course Brief History: 72-year-old female with history of type 2 diabetes mellitus and recent stenting for an acute non-ST elevation myocardial infarction who presented with pain in her upper back and was admitted for observation with persistently elevated troponin level. - Discharge Data Discharge Date: 08/19/17 Discharge Disposition: Home, Self-Care 01 Condition: Good - Discharge Diagnosis/Problem(s) (1) Left shoulder pain SNOMED Code(s): 34802013 ICD Code: M25.512 - PAIN IN LEFT SHOULDER Status: Acute Qualifiers: Chronicity: acute Qualified Code(s): M25.512 - Pain in left shoulder (2) Back pain SNOMED Code(s): 895390084 ICD Code: M54.9 - DORSALGIA, UNSPECIFIED Status: Acute Qualifiers: Back pain location: thoracic back pain Chronicity: acute Back pain laterality: midline Qualified Code(s): M54.6 - Pain in thoracic spine (3) Hx of heart artery stent SNOMED Code(s): 625888254 ICD Code: Z95.5 - PRESENCE OF CORONARY ANGIOPLASTY IMPLANT AND GRAFT Status : Chronic (4) Type 2 diabetes mellitus SNOMED Code(s): 25120702 ICD Code: E11.9 - TYPE 2 DIABETES MELLITUS WITHOUT COMPLICATIONS Status: Chronic Qualifiers: Diabetes mellitus complication status: with unspecified complications Diabetes mellitus care home insulin use: without rn long term care use Qualified Code( s): E11.8 - Type 2 diabetes mellitus with unspecified complications - Patient Summary/Data Hospital Course: [place] presented to the emergency room with cough and acute pain in her upper back. It is noted that she had recent stenting for a non-ST elevation myocardial infarction. Troponin level in the emergency room was noted to be elevated but improved compared to the level that was checked at discharge a couple of days prior. 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 No ischemic changes were noted on her EKG. She was admitted to the hospital for cardiac monitoring and serial troponin levels. Fortunately the troponin levels did continued to trend down but have not quite normalized yet. Her pain has improved significantly but has not resolved. It is noted that she has a cough and I suspect she has the same viral respiratory infection that her is dealing with. She had low-grade temperature elevations but no fevers. She is not hypoxic or tachycardic. I believe that symptomatic management and some time should be sufficient for her cough and upper back pain. She did have a CT scan of the emergency room that did not show evidence for pulmonary embolism, pneumonia or acute findings. No abnormalities were noted on telemetry. I believe she is safe for discharge at this time. She is comfortable with the plan to go home and do her best to manage the symptoms of the respiratory infection. I did instruct her to seek medical attention if her pain becomes acutely worse or if she develops high fevers or more difficulty breathing. She will be following up in a few days time to ensure that she continues to improve. - Patient Instructions Diet: Diabetic Diet Activity: As Tolerated Showering/Bathing: May Shower Notify Provider of: Fever, Increased Pain, Nausea and/or Vomiting Other/Special Instructions: 1. You were in the hospital for observation after an episode of upper back pain that occurred after a recent stenting to treat a myocardial infarction. There was no evidence that you had additional heart troubles during the hospital stay. The pain may have been caused by a bronchitis which I suspect is viral at this time. I would recommend utilizing [id number] symptomatic treatments such as cough drops and/or cough syrups. You can use acetaminophen to help with any discomfort. 2. Continue your usual medications as previously prescribed. 3. Follow up with your primary care provider early next week. 4. Seek medical attention if you develop worsening or severe pain in your back or chest, you develop sudden shortness of breath or if you have a fever greater than 101.4. - Discharge Plan Home Medications: Home Meds Cholecalciferol (Vitamin D3) [Vitamin D3] 4,000 units PO DAILY 11/15/14 [History ] MV,Ca,Min/Iron Fum/FA/Vit K [Multi For Her Tablet] 1 each PO DAILY 11/15/14 [ History] Vitamin B Complex [Vitamin B-100 Complex] 1 tab PO DAILY 11/15/14 [History] Acetaminophen [Tylenol Extra Strength] 500 - 1,000 mg PO Q4H PRN 12/06/14 [ History] Dexamethasone 2 mg PO BID PRN 12/06/14 [History] Loratadine [Claritin] 10 mg PO DAILY PRN 12/06/14 [History] Letrozole 2.5 mg PO DAILY 08/15/17 [History] glipiZIDE [Glipizide Xl] 5 mg PO DAILY 08/15/17 [History] metFORMIN [Glucophage] 500 mg PO BID 08/15/17 [History] Clopidogrel [Plavix] 75 mg PO DAILY 08/18/17 [History] Lisinopril 20 mg PO DAILY 08/18/17 [History] Metoprolol Tartrate 50 mg PO DAILY 08/18/17 [History] Nitroglycerin 0.4 mg PO ASDIRECTED PRN 08/18/17 [History] atorvaSTATin [Lipitor] 80 mg PO DAILY 08/18/17 [History] Patient Handouts: Acute Bronchitis, [id number] Referrals: Yaya Lees PA [Primary Care Provider] - (f/u in 5-7 days - follow-up hospital stay for recent acute myocardial infarction and upper back pain) - Discharge Summary/Plan Comment DC Time >30 min.: No (25) - Patient Data Vitals - Most Recent: Last Vital Signs Temp 37.8 C 08/19/17 07:31 Pulse 89 08/19/17 08:23 Resp 15 08/19/17 07:00 BP 135/53 L 08/19/17 08:23 Pulse Ox 97 08/19/17 07:00 Weight - Most Recent: 102.875 kg I&O - Last 24 hours: Intake & Output 08/18/17 08/19/17 08/19/17 22:59 06:59 14:59 Intake Total 240 480 Output Total 775 600 Balance -535 -120 Lab Results - Last 24 hrs: Laboratory Results - last 24 hr 08/18/17 08/18/17 08/19/17 Range/Units 11:56 18:18 05:00 Sodium 138 L (140-148) mmol/L Potassium 4.3 (3.6-5.2) mmol/L Chloride 106 (100-108) mmol/L Carbon Dioxide 23 (21-32) mmol/L Anion Gap 13.3 (5.0-14.0) mmol/L BUN 12 (7-18) mg/dL Creatinine 0.9 (0.6-1.0) mg/dL Est Cr Clr Drug Dosing 45.34 mL/min Estimated GFR (MDRD) > 60 (>60) Glucose 139 H (74-106) mg/dL Calcium 8.2 L (8.5-10.1) mg/dL Troponin I 0.167 H* 0.143 H* 0.136 H* (0.000-0.056) ng/mL Med Orders - Current: Current Medications Acetaminophen (Tylenol) 650 mg PO Q4H PRN PRN Reason: Pain (Mild 1-3)/fever Last Admin: 08/19/17 07:31 Dose: 650 mg Aspirin (Aspirin) 81 mg PO DAILY [facility] Last Admin: 08/19/17 08:20 Dose: 81 mg Clopidogrel Bisulfate (Plavix) 75 mg PO DAILY [facility] Last Admin: 08/19/17 08:22 Dose: 75 mg Dextrose (Glutose 15) 15 gm PO ONETIME PRN PRN Reason: Hypoglycemia Dextrose/Water (Dextrose 50% In Water) 50 ml IV ONETIME PRN PRN Reason: Hypoglycemia Enoxaparin Sodium (Lovenox) 40 mg SUBCUT DAILY [facility] Last Admin: 08/19/17 08:23 Dose: 40 mg Glipizide (Glucotrol Xl) 5 mg PO DAILY [facility] Last Admin: 08/19/17 08:22 Dose: 5 mg Insulin Aspart (Novolog) 0 unit SUBCUT QIDACANDBED [facility] PRN Reason: Protocol Last Admin: 08/19/17 07:33 Dose: Not Given Letrozole (Femara) 2.5 mg PO DAILY [facility] Last Admin: 08/19/17 08:22 Dose: 2.5 mg Lisinopril (Prinivil) 20 mg PO DAILY [facility] Last Admin: 08/19/17 08:21 Dose: 20 mg Loratadine (Claritin) 10 mg PO DAILY PRN PRN Reason: Other Magnesium Hydroxide (Milk Of Magnesia) 30 ml PO Q12H PRN PRN Reason: Constipation Metformin HCl (Glucophage) 500 mg PO BID [facility] Last Admin: 08/18/17 14:27 Dose: Not Given Metoprolol Tartrate (Lopressor) 50 mg PO DAILY [facility] Last Admin: 08/19/17 08:23 Dose: 50 mg Morphine Sulfate (Morphine) 2 mg IVPUSH Q30M PRN PRN Reason: Pain (severe 7-10) Last Admin: 08/18/17 18:34 Dose: 2 mg Nitroglycerin (Nitrostat) 0.4 mg SL ASDIRECTED PRN PRN Reason: Chest Pain Ondansetron HCl (Zofran) 4 mg IV Q4H PRN PRN Reason: Nausea/Vomiting Atorvastatin 80mg ( (Ptom)) 0 each PO QPM [facility] Last Admin: 08/18/17 16:05 Dose: 1 each Polyethylene Glycol (Miralax) 17 gm PO DAILY PRN PRN Reason: Constipation Senna/Docusate Sodium (Senna Plus) 1 tab PO BID PRN PRN Reason: Constipation Sodium Chloride (Saline Flush) 10 ml FLUSH ASDIRECTED PRN PRN Reason: Keep Vein Open Discontinued Medications Aspirin (Aspirin) 324 mg PO ONETIME ONE Stop: 08/18/17 04:17 Last Admin: 08/18/17 04:32 Dose: 324 mg Aspirin (Aspirin) Confirm Administered Dose 81 mg .ROUTE .STK-MED ONE Stop: 08/18/17 04:39 Last Admin: 08/18/17 05:10 Dose: Not Given Sodium Chloride (Normal Saline) 1,000 mls @ 500 mls/hr IV ASDIRECTED [facility] Last Admin: 08/18/17 05:28 Dose: 500 mls/hr Sodium Chloride (Normal Saline) 100 mls @ 3.5 mls/sec IV ASDIRECTED [facility] Stop: 08/18/17 09:00 Last Admin: 08/18/17 08:11 Dose: 4 mls/sec Iopamidol (Isovue-370 (76%)) 100 ml IV . DIRECTED [facility] Stop: 08/18/17 09:00 Last Admin: 08/18/17 08:11 Dose: 100 ml Lorazepam (Ativan) 1 mg IVPUSH ONETIME ONE Stop: 08/18/17 07:34 Last Admin: 08/18/17 07:40 Dose: 1 mg Morphine Sulfate (Morphine) 2 mg IVPUSH Q10M PRN PRN Reason: Chest Pain Stop: 08/19/17 04:17 Last Admin: 08/18/17 05:08 Dose: 2 mg Sodium Chloride (Saline Flush) 10 ml FLUSH ASDIRECTED PRN PRN Reason: Keep Vein Open Last Admin: 08/18/17 04:34 Dose: 10 ml Sodium Chloride (Saline Flush) 10 ml FLUSH ONETIME PRN PRN Reason: per radiology protocol Stop: 08/18/17 09:00 Last Admin: 08/18/17 08:11 Dose: 10 ml - Exam Quality Assessment: Denies: Supplemental Oxygen General: Reports: Alert, Oriented, Cooperative, No Acute Distress Neck: Reports: Supple Lungs: Reports: Clear to Auscultation, Normal Respiratory Effort Cardiovascular: Reports: Regular Rate, Regular Rhythm GI/Abdominal Exam: No Distention Extremities: No Pedal Edema Psy/Mental Status: Reports: Alert, Normal Affect *Q Meaningful Use (DIS) - VTE *Q VTE Criteria *Q: - Stroke *Q Stroke Criteria *Q: - AMI *Q AMI Criteria *Q:
== END 2017-08-19 10:40 | disposition home or self-care (01) ==
LOC: JP.ED 03:59 → JP.ICU 10:13
PROVIDERS: ADMIT Hospitalist; ATTEND Hospitalist
DX: M54.6 Pain in thoracic spine (principal); M25.512 Pain in left shoulder; E11.8 Type 2 diabetes mellitus with unspecified complications; I25.10 Atherosclerotic heart disease of native coronary artery without angina pectoris; E78.00 Pure hypercholesterolemia, unspecified; I10 Essential (primary) hypertension; I25.2 Old myocardial infarction; Z95.5 Presence of coronary angioplasty implant and graft; Z79.84 Long term (current) use of oral hypoglycemic drugs; Z79.899 Other long term (current) drug therapy; Z88.2 Allergy status to sulfonamides; Z88.8 Allergy status to other drugs, medicaments and biological substances
CPT/HCPCS: 36415; 71045; 71045-26; 71275; 80048; 80053; 82553; 82962; 84484; 85025; 85651; 93005; 93010; 96361; 96372; 96374; 96375; 96376; 99285-25; A9270-GY; G0378; J1650; J2060; J2270; J7030; J7040; J7050; Q9967

== ENCOUNTER 2022-02-17 08:03 | Emergency (ER) | payer MEDICARE, BC ==
[2022-02-17] MEDS ORDERED: Sodium Chloride 0.9% 10 ML Syringe FLUSH PRN (08:11)
[2022-02-17] MEDS ORDERED: Aspirin 81 MG Tab.Chew PO ONE (08:13)
[2022-02-17] MEDS ORDERED: Pantoprazole 40 MG Tab.CR PO ONE (08:54)
[2022-02-17] MEDS ORDERED: LORazepam 0.5 MG Tab PO ONE (09:15)
[2022-02-17] MEDS ORDERED: Sodium Chloride 0.9% 50 ML IV ONE (09:17)
[2022-02-17] MEDS ORDERED: Sodium Chloride 0.9% 10 ML Syringe FLUSH ONE (09:17)
[2022-02-17] MEDS ORDERED: Iopamidol 755 Mg/ML 100 ML Bottle IV SCH (09:30)
[2022-02-17 11:51] VITALS: BP 140/61; PULSE 72
== END 2022-02-17 12:01 | disposition home or self-care (01) ==
LOC: JP.ED 08:03
DX: I25.10 Atherosclerotic heart disease of native coronary artery without angina pectoris (principal); M54.6 Pain in thoracic spine; E11.8 Type 2 diabetes mellitus with unspecified complications; I10 Essential (primary) hypertension; I25.2 Old myocardial infarction; Z88.1 Allergy status to other antibiotic agents; Z88.2 Allergy status to sulfonamides; Z88.8 Allergy status to other drugs, medicaments and biological substances; Z79.899 Other long term (current) drug therapy; Z79.84 Long term (current) use of oral hypoglycemic drugs; Z79.82 Long term (current) use of aspirin
CPT/HCPCS: 36415; 71275; 80048; 82947; 83880; 84484; 85025; 85379; 93005; 99285; A9270; J3490; Q9967

== ENCOUNTER 2022-03-08 15:54 | Emergency (ER) | payer MEDICARE, BC ==
[2022-03-08] MEDS ORDERED: Sodium Chloride 0.9% 10 ML Syringe FLUSH PRN (17:54)
[2022-03-08] MEDS ORDERED: Ondansetron 4 MG/2 ML SDV IVPUSH ONE (17:55)
[2022-03-08] MEDS ORDERED: Morphine 2 MG/ML SYRINGE IVPUSH ONE ×2 (17:55→19:39)
[2022-03-08 18:31] LABS: TROPONIN I HIGH SENSITIVITY 4.5 pg/mL (<=60.3)
[2022-03-08] MEDS ORDERED: Alum Hydrox/Mag Hydrox/Simeth 15 ML, Lidocaine 2% 15 ML PO ONE ×2 (19:02)
[2022-03-08 20:05] VITALS: BP 179/73; PULSE 65
== END 2022-03-08 20:23 | disposition home or self-care (01) ==
LOC: JP.ED 15:54
DX: M54.6 Pain in thoracic spine (principal); N39.0 Urinary tract infection, site not specified; R31.9 Hematuria, unspecified; I25.10 Atherosclerotic heart disease of native coronary artery without angina pectoris; E78.00 Pure hypercholesterolemia, unspecified; E11.9 Type 2 diabetes mellitus without complications; K21.9 Gastro-esophageal reflux disease without esophagitis; I25.2 Old myocardial infarction; E66.9 Obesity, unspecified; Z68.41 Body mass index [BMI] 40.0-44.9, adult; Z95.5 Presence of coronary angioplasty implant and graft; Z88.2 Allergy status to sulfonamides; Z88.8 Allergy status to other drugs, medicaments and biological substances; Z86.16 Personal history of COVID-19
CPT/HCPCS: 36415; 71046; 80048; 81001; 84484; 85025; 87086; 93005; 96374; 96375; 96376; 99284; A9270; J2270; J2405; J3490

== ENCOUNTER 2024-04-05 19:18 | Emergency (ER) | payer MEDICARE, BC ==
[2024-04-05 19:45] LABS: BASOPHILS ABSOLUTE AUTO 0.03 K/uL (0.00-0.10); BASOPHILS PERCENT AUTO 0.5 % (0.1-1.3); EOSINOPHILS ABSOLUTE AUTO 0.18 K/uL (0.00-0.40); EOSINOPHILS PERCENT AUTO 2.8 % (0.0-5.4); HEMATOCRIT 36.1 % (34.3-46.0); HEMOGLOBIN 12.4 g/dL (11.2-15.5); IMMATURE GRAN PERCENT AUTO 0.2 % (0.0-0.7); LYMPHOCYTES ABSOLUTE AUTO 2.35 K/uL (0.8-3.3); LYMPHOCYTES PERCENT AUTO 36.9 % (11.4-47.7); MEAN CORPUSCULAR HEMOGLOBIN 29.1 pg (31.6-35.5); MEAN CORPUSCULAR HGB CONC 34.3 g/dL (31.6-35.5); MEAN CORPUSCULAR VOLUME 84.7 fL (81.4-99.0); MONOCYTES PERCENT AUTO 9.4 % (3.3-12.6); NEUTROPHILS ABSOLUTE AUTO 3.19 K/uL (1.0-7.6); NEUTROPHILS PERCENT AUTO 50.2 % (40.0-78.1); PLATELET COUNT,PLT 201 K/uL (130-375); RED BLOOD CELL COUNT 4.26 M/uL (3.77-5.24); WHITE BLOOD CELL COUNT,WBC 6.4 K/uL (3.2-11.0)
[2024-04-05 19:46] LABS: IMMATURE GRAN ABSOLUTE AUTO 0.01 K/uL (0.00-0.23)
[2024-04-05 19:57] LABS: BLOOD UREA NITROGEN,BUN 14 mg/dL (7-18); CALCIUM 9.7 mg/dL (8.5-10.1); CARBON DIOXIDE,CO2 25 mmol/L (21-32); CHLORIDE,CL 103 mmol/L (100-108); CREATININE 1.1 mg/dL (0.6-1.0); ESTIMATED GFR 52 mL/min (>60); GLUCOSE RANDOM 145 mg/dL (74-106); SODIUM,NA 139 mmol/L (140-148)
[2024-04-05 19:59] LABS: PROTHROMBIN TIME 10.1 sec (9.2-10.6)
[2024-04-05] MEDS: Sodium Chloride 0.9% 80 ML IV SCH (20:16)
[2024-04-05] MEDS: Iopamidol 755 Mg/ML 100 ML Bottle IV SCH (20:16)
[2024-04-05 21:01] VITALS: PULSE 84
[2024-04-05] MEDS: LORazepam 2 MG/ML SDV IVPUSH ONE (21:06)
[2024-04-05] MEDS ORDERED: Rocuronium 50 MG/5 ML Vial ONE (21:39)
[2024-04-05] MEDS ORDERED: Propofol 200 MG/20 ML SDV ONE (21:39)
[2024-04-05] MEDS: propofoL 100 ML IV SCH (21:45)
[2024-04-05] MEDS: LORazepam 2 MG/ML SDV ONE (21:52)
[2024-04-05 22:01] LABS: O2 SATURATION ARTERIAL 96.5 % (95.0-98.0); PCO2 ARTERIAL 33.5 mmHg (35.0-42.0); PO2 ARTERIAL 82.8 mmHg (75.0-100.0)
[2024-04-05 22:02] LABS: BASE EXCESS ARTERIAL -0.3 mm/L; BICARBONATE,ARTERIAL 22.7 mmol/L (22.0-26.0)
[2024-04-05 22:05] LABS: CARBOXYHEMOGLOBIN 1.8 % (0.0-1.6); OXYHEMOGLOBIN 93.8 %
[2024-04-05 22:07] LABS: TOTAL HEMOGLOBIN 12.7 g/dL (12.0-16.0)
[2024-04-05 22:10] LABS: BASE EXCESS ARTERIAL -0.3 mm/L; CARBOXYHEMOGLOBIN 2.7 % (0.0-1.6); O2 SATURATION ARTERIAL 99.1 % (95.0-98.0); OXYHEMOGLOBIN 95.4 %; PCO2 ARTERIAL 34.7 mmHg (35.0-42.0); TOTAL HEMOGLOBIN 12.4 g/dL (12.0-16.0)
[2024-04-05] MEDS: levETIRAcetam in NaCl (iso-os) 1,000 MG in Premix Bag 1 BAG IV ONE (22:23)
[2024-04-05] MEDS: levETIRAcetam 500 MG/5 ML SDV IVPUSH ONE (22:23)
[2024-04-05] MEDS: propofoL 100 ML ONE (22:24)
[2024-04-05 22:33] LABS: LACTIC ACID 1.9 mmol/L (0.4-2.0)
[2024-04-05 22:50] VITALS: BP 166/83
== END 2024-04-05 23:13 | disposition other institution (70) ==
LOC: JP.ED 19:18
DX: R56.9 Unspecified convulsions (principal); I25.10 Atherosclerotic heart disease of native coronary artery without angina pectoris; I10 Essential (primary) hypertension; I25.2 Old myocardial infarction; E78.00 Pure hypercholesterolemia, unspecified; K21.9 Gastro-esophageal reflux disease without esophagitis; E11.9 Type 2 diabetes mellitus without complications; E66.9 Obesity, unspecified; Z95.5 Presence of coronary angioplasty implant and graft; Z79.82 Long term (current) use of aspirin; Z79.899 Other long term (current) drug therapy; Z79.84 Long term (current) use of oral hypoglycemic drugs; Z88.5 Allergy status to narcotic agent; Z88.8 Allergy status to other drugs, medicaments and biological substances; Z88.2 Allergy status to sulfonamides; Z68.30 Body mass index [BMI] 30.0-30.9, adult
CPT/HCPCS: 31500; 36415; 36600; 70450; 70496; 70498; 71045; 80048; 82803; 82947; 83605; 84484; 85025; 85610; 93005; 96365; 96368; 96375; 99285; J1953; J2060; J2704; J3490; Q9967; 93010